=== PATIENT | female | born 1980 | race Caucasian/White ===

== ENCOUNTER 2016-09-14 04:42 | Inpatient (IN) | payer BC ==
[2016-09-14 06:48] LABS: Hematocrit 39 % (35-47); Hemoglobin 13.4 g/dl (12.0-16.0); Mean Corpuscular HGB Conc 34 g/dl (31-36); Mean Corpuscular Hemoglobin 33 pg (27-31); Mean Corpuscular Volume 95 fL (80-97); Red Cell Distribution Width 14 % (10.5-15); White Blood Count 17.9 10^3/ul (3.5-10.8)
[2016-09-14 06:51] LABS: Comments Flag Yes
[2016-09-14 06:52] LABS: Add Diff/Slide Review? Slide Review Added
[2016-09-14 07:24] LABS: Mean Platelet Volume 12 um3 (7.4-10.4)
[2016-09-14] MEDS ORDERED: Oxytocin in LR* 20 UNITS/1,000 ML BAG IVPB ONE (07:32)
[2016-09-14] MEDS ORDERED: Acetaminophen TAB* 325 MG PO PRN (07:52)
[2016-09-14] MEDS ORDERED: oxyCODONE/Acetamin 5/325 MG* TAB PO PRN (07:52)
[2016-09-14] MEDS ORDERED: Misoprostol TAB* 200 MCG PR ONE (07:52)
[2016-09-14] MEDS ORDERED: Witch Hazel PAD* JAR TOPICAL PRN (07:52)
[2016-09-14] MEDS ORDERED: Dibucaine 1% 28.35 GM TUBE PR PRN (07:52)
[2016-09-14] MEDS ORDERED: Oxytocin in LR* 20 UNITS/1,000 ML BAG IVPB SCH (08:00)
[2016-09-14] MEDS: Docusate CAP* 100 MG PO SCH ×3 (08:18→20:29)
[2016-09-14] MEDS: Ibuprofen TAB* 600 MG PO PRN ×3 (08:18→20:29)
[2016-09-14] MEDS ORDERED: Simethicone CHEW TAB* 80 MG PO SCH (08:30)
[2016-09-14] MEDS: Propranolol LA CAP* 80 MG PO SCH (09:15)
[2016-09-15] MEDS: Ibuprofen TAB* 600 MG PO PRN ×3 (04:21→21:24)
[2016-09-15 06:56] LABS: Hematocrit 32 % (35-47); Hemoglobin 10.9 g/dl (12.0-16.0); Mean Corpuscular HGB Conc 34 g/dl (31-36); Mean Corpuscular Hemoglobin 33 pg (27-31); Mean Corpuscular Volume 96 fL (80-97); Mean Platelet Volume 12 um3 (7.4-10.4); Red Blood Count 3.35 10^6/ul (4.0-5.4); Red Cell Distribution Width 14 % (10.5-15); White Blood Count 13.3 10^3/ul (3.5-10.8)
[2016-09-15] MEDS: Docusate CAP* 100 MG PO SCH ×3 (07:37→21:24)
[2016-09-15] MEDS: Propranolol LA CAP* 80 MG PO SCH (07:37)
[2016-09-15] MEDS ORDERED: Measles, Mumps,Rubella VACC* 0.5 ML/VIAL SUBCUT ONE (09:00)
[2016-09-15] MEDS: Ferrous Gluconate TAB* 324 MG TAB PO SCH ×2 (11:04→21:40)
[2016-09-16] MEDS: Ibuprofen TAB* 600 MG PO PRN (06:39)
[2016-09-16 08:27] VITALS: BP 123/72
[2016-09-16] MEDS: Docusate CAP* 100 MG PO SCH (09:00)
[2016-09-16] MEDS: Propranolol LA CAP* 80 MG PO SCH (09:00)
== END 2016-09-16 10:39 | disposition home or self-care (01) | DRG 560 ==
LOC: MCHOBOUT 04:42 → MCHOB 05:12
PROVIDERS: ADMIT Midwife; ATTEND Nurse Practitioner
PROC: 10E0XZZ Delivery of Products of Conception, External Approach (ICD-10-PCS; principal; 2016-09-14)
PROC: 0HQ9XZZ Repair Perineum Skin, External Approach (ICD-10-PCS; 2016-09-14)
PROC: 4A1HXCZ Monitoring of Products of Conception, Cardiac Rate, External Approach (ICD-10-PCS; 2016-09-14)
DX: O48.0 Post-term pregnancy (principal); G43.909 Migraine, unspecified, not intractable, without status migrainosus; O75.89 Other specified complications of labor and delivery; O69.81X0 Labor and delivery complicated by cord around neck, without compression, not applicable or unspecified; O70.0 First degree perineal laceration during delivery; Z3A.40 40 weeks gestation of pregnancy; Z37.0 Single live birth; Z88.1 Allergy status to other antibiotic agents
CPT/HCPCS: 36415; 85025; 86850; 86900; 86901; 90707; A9270-GY

== ENCOUNTER 2018-01-15 05:54 | Emergency (ER) | payer BC ==
[2018-01-15] MEDS ORDERED: Ketorolac INJ* 30 MG/ML 1 ML VIAL IV PUSH ONE (07:25)
[2018-01-15] MEDS ORDERED: NS 0.9% 1000 ML* 1,000 ML IV ONE (07:25)
--- NOTE | 2018-01-15 07:28 | ED ---
Abdominal Pain/Female - HPI Summary HPI Summary: Patient is a 37-year-old who presents emergency department for pain under bilateral ribs which started acutely early this morning. Patient states she's had pain similar to this in the past but it typically resolves. She describes pain as sharp and cramping in nature. Pain occasionally feels better when sitting up and leaning forward. She denies chest pain, shortness of breath, recent illness, fever. Admits to nausea without vomiting. Denies diarrhea or constipation, urinary symptoms. She denies Past medical history. Symptoms are moderate in severity. No current modifying factors. - History of Current Complaint Chief Complaint: EDChestWallPain Stated Complaint: ABD/BACK PAIN Time Seen by Provider: 01/15/18 07:08 Hx Obtained From: Patient Hx Last Menstrual Period: LAST WEEK FEBRUARY Pain Intensity: 5 Allergies/Adverse Reactions: Allergies Allergy/AdvReac Type Severity Reaction Status Date / Time erythromycin base Allergy Nausea And Verified 01/20/18 10:55 Vomiting Home Medications: Home Medications Ibuprofen TAB* [Motrin TAB* 600 MG] 400 mg PO Q6H PRN 01/15/18 [History Confirmed 01/15/18] Magnesium Oxide [Magnesium] 400 mg PO QAM 01/15/18 [History Confirmed 01/15/18] Propranolol HCl [Propranolol HCl ER] 80 mg PO QAM 01/15/18 [History Confirmed ] PMH/Surg Hx/FS Hx/Imm Hx Previously Healthy: Yes Endocrine/Hematology History: Denies: Hx Diabetes, Hx Thyroid Disease Cardiovascular History: Denies: Hx Hypertension Respiratory History: Denies: Hx Asthma History: Denies: Hx Kidney Infection, Other Problems/Disorders Psychiatric History: Reports: Other Psychiatric Issues/Disorders - anxiety uses acupunture Denies: Hx Anxiety, Hx Depression Infectious Disease History: No Infectious Disease History: Denies: Traveled Outside the [place] in Last 30 Days - Family History Known Family History: Positive: Other Family History: Noncontributory - Social History Occupation: Employed Full-time Lives: With Family Alcohol Use: None Substance Use Type: Reports: None Smoking Status (MU): Never Smoked Tobacco Have You Smoked in the Last Year: No Review of Systems Constitutional: Negative Negative: Fever, Chills Eyes: Negative ENT: Negative Cardiovascular: Negative Negative: Chest Pain Respiratory: Negative Negative: Shortness Of Breath, Cough Positive: Abdominal Pain, Nausea. Negative: Vomiting, Diarrhea Genitourinary: Negative Negative: burning, dysuria Musculoskeletal: Negative Neurological: Negative All Other Systems Reviewed And Are Negative: Yes Physical Exam Triage Information Reviewed: Yes Vital Signs On Initial Exam: Initial Vitals Temp Pulse Resp BP Pulse Ox 98.1 F 72 20 136/98 99 01/15/18 06:08 01/15/18 06:08 01/15/18 06:08 01/15/18 06:08 01/15/18 06:08 Vital Signs Reviewed: Yes Appearance: Positive: Well-Appearing - Pt. sitting up in bed in NAD. present. Skin: Positive: Warm, Dry Head/Face: Positive: Normal Head/Face Inspection Eyes: Positive: Normal, EOMI Neck: Positive: Supple, Nontender Respiratory/Lung Sounds: Positive: Clear to Auscultation, Breath Sounds Present Cardiovascular: Positive: Normal, RRR Abdomen Description: Positive: Other: - Abd. is soft with pain to the RUQ and LUQ. Slightly positive linn sign. No rebound tenderness or guarding.. Negative: CVA Tenderness (R), CVA Tenderness (L) Musculoskeletal: Positive: Other - No midline vertebral tenderness Neurological: Positive: Normal, CN Intact II-III Psychiatric: Positive: Affect/Mood Appropriate Diagnostics - Vital Signs Vital Signs Temp Pulse Resp BP Pulse Ox 01/15/18 06:08 98.1 F 72 20 136/98 99 - Laboratory Result Diagrams: 01/15/18 07:38 01/15/18 07:38 Lab Statement: Any lab studies that have been ordered have been reviewed, and results considered in the medical decision making process. Abdominal Pain Fem Course/Dx - Course Course Of Treatment: Pt. presenting for upper, intermittent abd. pain. She is afebrile with stable vital signs. Will obtain labs and GB u/s. Pt. was started on IV fluids and given toradol for pain. Blood work is unremarkable. U/S shows cholelithiasis without evidence of cholecystitis, reading per radiology. On reexamination patient's pain has improved and she is resting comfortably. Results were discussed. Patient is currently pain free and we'll discharge her home to follow up with surgery for outpt., elective cholecystectomy. Advised patient to avoid foods high in fat, degrees, sugar. Advised patient to return to the ER if pain increases, persists, fever, uncontrollable vomiting or if concerned. Patient understands and agrees with plan. She was given information for the surgical clinic and is to call their office tomorrow to schedule an appointment. - Diagnoses Differential Diagnosis: Positive: Appendicitis, Constipation, Gall Bladder Disease, Hepatitis, Pancreatitis, Peptic Ulcer Disease, Pneumonia, , Renal Colic, Urinary Tract Infection Provider Diagnoses: Cholelithiasis Discharge - Sign-Out/Discharge Documenting (check all that apply): Patient Departure - Discharge Plan Condition: Good Disposition: HOME Patient Education Materials: Gallstones (ED) Referrals: Nataly Lugo MD [Medical Doctor] - Penny Cope MD [Primary Care Provider] - Additional Instructions: Schedule a follow up appointment with PCP and surgery Avoid foods high in fat, sugar, grease Can take tylenol or motrin for pain as directed Return to ER for increased, prolonged pain, fever, vomiting or if concerned - Billing Disposition and Condition Condition: GOOD Disposition: Home
[2018-01-15 07:48] LABS: ABS Basophils 0 10^3/ul (0-0.2); ABS Eosinophils 0.1 10^3/ul (0-0.6); ABS Lymphocytes 1.3 10^3/ul (1.0-4.8); ABS Monocytes 0.6 10^3/ul (0-0.8); ABS Neutrophils 6.8 10^3/ul (1.5-7.7); ABS Nucleated RBC 0 10^3/ul; Hematocrit 40 % (35-47); Lymphocyte % 15.3 % (25-47); Mean Corpuscular HGB Conc 35 g/dl (31-36); Mean Corpuscular Hemoglobin 33 pg (27-31); Mean Corpuscular Volume 93 fL (80-97); Mean Platelet Volume 10.8 um3 (7.4-10.4); Nucleated Red Blood Cells % 0.2; Platelet Count 170 10^3/ul (150-450); Red Blood Count 4.32 10^6/ul (4.00-5.40); Red Cell Distribution Width 13 % (10.5-15); White Blood Count 8.8 10^3/ul (3.5-10.8)
[2018-01-15 08:07] LABS: EGFR Non-African American 76.7 (>60)
--- NOTE | 2018-01-15 08:20 | RAD ---
HISTORY: RUQ pain COMPARISONS: None TECHNIQUE: Multiple transverse and longitudinal ultrasound images were obtained of the right upper quadrant of the abdomen using grayscale and color Doppler imaging. FINDINGS: LIVER: The liver is diffusely echogenic and coarse in echotexture, with decreased acoustic transmission. The liver measures 18.8 cm in long axis.. There is normal hepatopedal flow of the portal vein on Doppler imaging. BILIARY TREE: There is no intrahepatic or extrahepatic biliary dilatation. The common duct measures 0.3 cm. GALLBLADDER: The gallbladder is distended. Multiple shadowing echogenic foci consistent with gallstones are noted. There is no gallbladder wall thickening, pericholecystic fluid, or sonographic Esquivel sign. PANCREAS: The head of the pancreas is unremarkable. The tail of the pancreas is not well visualized secondary to overlying bowel gas. RIGHT KIDNEY: The right kidney is normal in shape, size, contour, and echogenicity. There is no hydronephrosis or nephrolithiasis. The right kidney measures 10.8 x 5.1 x 4.9 cm. AORTA AND IVC: The aorta and IVC are unremarkable. FLUID: There are no pleural effusions. There is no free fluid within the hepatorenal recess. OTHER FINDINGS: None. IMPRESSION: 1. CHOLELITHIASIS WITHOUT SONOGRAPHIC FEATURES OF ACUTE CHOLECYSTITIS. 2. FATTY INFILTRATION OF THE LIVER.
[2018-01-15 10:19] VITALS: BP 111/78
== END 2018-01-15 10:20 | disposition home or self-care (01) ==
LOC: ED 05:54
DX: K80.20 Calculus of gallbladder without cholecystitis without obstruction (principal); K76.0 Fatty (change of) liver, not elsewhere classified; Z88.1 Allergy status to other antibiotic agents
CPT/HCPCS: 36415; 76705; 80053; 83690; 84702; 85025; 96361; 96374; 99283; J1885

== ENCOUNTER 2018-01-20 10:40 | Day surgery (SDC) | payer BC ==
--- NOTE | 2018-01-18 15:01 | HP ---
CC: Dr. Lugo; Dr. Cope* DATE OF ADMISSION: 01/20/2018. This patient is scheduled for Same Day Surgery admission by Dr. Lugo. DATE OF PREOPERATIVE HISTORY AND PHYSICAL EXAMINATION: 01/18/2018. ATTENDING SURGEON: Dr. Nataly Lugo* (dictated by Jackie Ambrose NP). CHIEF COMPLAINT: Gallstones. HISTORY OF PRESENT ILLNESS: The patient is a 37-year-old female, recently evaluated by Dr. Lugo. The patient was in the [facility] Emergency Department on 01/15/2018 complaining of back pain wrapping around to her abdomen associated with nausea, bloating, and diarrhea. She denied any fever or chills. She denied any change in the color of urine or stool. Gallbladder ultrasound revealed cholelithiasis, no acute changes to suggest cholecystitis, and there was fatty infiltration of the liver. White blood cell count and liver function test were within normal limits. She was referred for surgical consultation. Dr. Lugo has examined the patient and has recommended laparoscopic cholecystectomy, and has described the nature of the surgical procedure, the relevant risks and benefits, and today I reviewed the expected postoperative care and recovery. The patient has had a chance to ask questions and stated that she understands the information and is satisfied with the answers given to her questions. She will sign surgical consent on the day of surgery. PAST MEDICAL HISTORY: Migraine headaches. PAST SURGICAL HISTORY: Cervical LEEP procedure. MEDICATIONS: 1. Propranolol ER 80 mg one tablet p.o. daily. 2. Ondansetron 4 mg one to two p.o. every 8 hours prn nausea. 3. Relpax 40 mg one tablet as needed for headache, may repeat after 2 hours, maximum 2 tablets a day, maximum 2 days a week. 4. Advil 200 mg one to two tablets every 6 to 8 hours prn migraine. 5. Magnesium 400 mg p.o. b.i.d. ALLERGIES: ERYTHROMYCIN CAUSED NAUSEA AND VOMITING. FAMILY HISTORY: Mother had a cholecystectomy. No known anesthesia complications, bleeding tendencies, or clotting disorders. SOCIAL HISTORY: She is and has two young children. 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 She is a nonsmoker. She denies the use of alcohol or other substances. REVIEW OF SYSTEMS: Constitutional: No fevers, chills, excessive fatigue or weight loss. Endocrine: No diabetes or thyroid disease. Hematologic: No easy bruising or bleeding. No history of blood transfusions. Respiratory: No dyspnea on exertion. No chronic cough. Cardiovascular: No anginal chest pain or palpitations. Gastrointestinal: As described in history of present illness ; today she is pain free and denies any nausea, vomiting, diarrhea, or constipation. Genitourinary: No dysuria, no dark urine. Musculoskeletal: No back or joint pain. Neurologic: No headache or blurred vision. No areas of focal weakness. General: No previous anesthesia complications. No history of deep vein thrombosis or pulmonary embolism. No blood transfusions. PHYSICAL EXAMINATION GENERAL: The patient is a 37-year-old female, well-developed, well-nourished, in no acute distress. VITAL SIGNS: Height 64 inches, weight 170 pounds, body mass index 29.2. Blood pressure 92/60, pulse 70 and regular, respiratory rate 16, temperature 98.3 tympanic. SKIN: Warm, dry, intact. HEENT: Anicteric sclerae. NECK: Supple, no cervical lymphadenopathy. LUNGS: Breath sounds bilaterally clear and equal. HEART: Regular rate and rhythm. No murmurs or rubs appreciated. ABDOMEN: Active bowel sounds, soft, nondistended, nontender throughout. Negative Esquivel sign. No obvious masses, organomegaly, or evidence of umbilical hernia. EXTREMITIES: Warm without edema or skin ulceration. PELVIC: Exam deferred. RECTAL: Exam deferred. NEUROLOGIC: Alert and oriented times three, steady gait. IMPRESSION: Symptomatic cholelithiasis. PLAN: Same Day Surgery admission to Dr. Lugo's service on 01/20/2018 for laparoscopic cholecystectomy. NEELIMA AMBROSE, PRIMARY SCHOOL TEACHER LIBRARIAN [id number]/[facility] #: [id number] GINO
[~2018-01-20 10:40] MED LIST: Buffered Lidocaine 0.9% SYRIN* 5 ML/SYR SYRINGE INTRADERM ONE; Dexamethasone IV* 4 MG/ML 1 ML (4 MG) IV SLOW PU ONE; Famotidine IV* 10 MG/ML 2 ML (20 mg) IV ONE
[2018-01-20] MEDS ORDERED: Famotidine IV* 10 MG/ML 2 ML (20 mg) ONE (10:45)
[2018-01-20] MEDS ORDERED: Dexamethasone IV* 4 MG/ML 1 ML (4 MG) ONE (10:45)
[2018-01-20] MEDS ORDERED: ceFAZolin 2 GM PREMIX (*) 2 GM/50 ML BAG IVPB ONE (10:46)
[2018-01-20] MEDS ORDERED: Midazolam* 1 MG/ML 5 ML VIAL (5 MG) ONE (11:07)
[2018-01-20] MEDS ORDERED: fentaNYL* 50 MCG/ML 2 ML VIAL (100 MCG VIAL) ONE ×4 (11:07→13:14)
[2018-01-20] MEDS ORDERED: Ketorolac INJ* 30 MG/ML 1 ML VIAL IV PRN (11:17)
[2018-01-20] MEDS ORDERED: DiMENhydriNATE IV* 50 MG/ML VIAL IV PUSH PRN (11:17)
[2018-01-20] MEDS ORDERED: Naloxone* 0.4 MG/ML 1 ML VIAL IV PRN (11:17)
[2018-01-20] MEDS ORDERED: HYDROcodone/ACETAMIN 5-325 MG* 1 TAB PO PRN (11:17)
[2018-01-20] MEDS ORDERED: Propofol* 10 MG/ML 20 ML BTL IV PUSH ONE (11:27)
[2018-01-20] MEDS ORDERED: Mivacurium Chloride* 20 MG/10 ML VIAL IV ONE (11:27)
[2018-01-20] MEDS ORDERED: Lidocaine 2% PF * 5 ML VIAL ONE (11:27)
[2018-01-20] MEDS ORDERED: Ondansetron INJ* 2 MG/ML VIAL ONE (12:19)
--- NOTE | 2018-01-20 13:10 | BRIEFOPN ---
Brief Operative Note - Surgery Procedures: Brief Operative Note Preoperative Dx: Calculous cholecystitis. Postoperative Dx: Calculous cholecystitis. Procedure: Laparoscopic cholecystectomy. Anesthesia: GET. Surgeon: MD Parish. Assist: ED Thomas. EBL: Less than 50. Fluids: 1400 LR Specimen: Gallbladder. Findings: Dictated.
[2018-01-20] MEDS ORDERED: Ketorolac INJ* 30 MG/ML 1 ML VIAL ONE (13:14)
[2018-01-20] MEDS: fentaNYL* 50 MCG/ML 2 ML VIAL (100 MCG VIAL) IV PRN ×2 (13:19→13:32)
[2018-01-20] MEDS ORDERED: oxyCODONE TAB* 5 MG TAB ONE ×2 (13:43→14:34)
[2018-01-20] MEDS: oxyCODONE TAB* 5 MG TAB PO PRN ×2 (13:44→14:34)
[2018-01-20 16:03] VITALS: BP 118/73
--- NOTE | 2018-01-21 00:53 | OP ---
CC: Dr. Penny Cope * DATE OF OPERATION: 01/20/18 - [facility] DATE OF : 82 SURGEON: Nataly Lugo MD GUSSET STITCHER: Jackie Almeida NP and ED Lee, student PRE-OP DIAGNOSIS: Chronic cholecystitis. POST-OP DIAGNOSIS: Chronic cholecystitis. OPERATIVE PROCEDURE: Laparoscopic cholecystectomy. INDICATIONS: Ms. Minaya is a 37-year-old woman who has been having abdominal pain consistent with chronic cholecystitis, so plans were made for operative intervention. DESCRIPTION OF PROCEDURE: She was brought to the operating room, placed on the OR table in a supine position and given general anesthesia. The abdomen was then prepped and draped in the usual sterile fashion. After infiltrating with local anesthetic, an incision was made in the infraumbilical area and subcutaneous tissue was divided bluntly. The fascia was grasped and incised and a 0 Vicryl stitch was placed on either side of the fascial incision. A trocar was inserted into the abdomen and the abdomen was insufflated and under direct visualization a subxiphoid and 2 right subcostal ports were placed after infiltrating with the local anesthetic. The gallbladder was visualized and elevated over the liver and was noted to have some adhesions of omentum to it. These were taken down with a combination of blunt and electrocautery dissection to expose the infundibulum with gallbladder. This allowed dissection of the cystic duct and was noted to have a stone in it, so the cystic duct was cleared. Below the stone it was clipped and divided and then the cystic artery was identified, cleared, clipped and divided and then the gallbladder was taken down from the liver bed. This was done with electrocautery. A small amount of mild leakage was noted and the gallbladder once it was removed from the liver bed, was placed in an EndoCatch bag and withdrawn from the abdomen through the subxiphoid port site. Small amount of bleeding on the liver bed was controlled with electrocautery and Surgicel and then the rest of the abdomen was briefly inspected and there noted no obvious abnormalities. The right upper quadrant was copiously irrigated with saline and the irrigation fluid was evacuated. All ports were then withdrawn under direct visualization. The previously placed 0 Vicryl was used to close the fascia. The infraumbilical port site required 2 additional [id number] stitches with 0 Vicryl to complete the closure, then 4-0 Monocryl was used to close the skin of all incisions. Steri- Strips were applied. All sponge and instrument counts were correct. The patient tolerated the procedure well and was transferred to Recovery in a stable condition. [id number]/[facility] #: [id number] MTDD
== END 2018-01-20 16:04 | disposition home or self-care (01) ==
LOC: OR 10:40
PROVIDERS: ATTEND Surgery
DX: K80.10 Calculus of gallbladder with chronic cholecystitis without obstruction (principal); Z68.29 Body mass index [BMI] 29.0-29.9, adult
CPT/HCPCS: 81025; 88304; A9270-GY; J0690; J1100; J1885; J2250; J2405; J2704; J3010

== ENCOUNTER 2018-05-19 08:16 | Day surgery (SDC) | payer BC ==
[~2018-05-19 08:16] MED LIST changes: +Lactated Ringers 1000 ML Bag* 1,000 ML IV SCH
[2018-05-19] MEDS ORDERED: Dexamethasone IV* 4 MG/ML 1 ML (4 MG) ONE (08:45)
[2018-05-19] MEDS ORDERED: Famotidine IV* 10 MG/ML 2 ML (20 mg) ONE (08:45)
[2018-05-19 09:19] LABS: Hematocrit 43 % (35-47); Hemoglobin 14.8 g/dl (12.0-16.0); Mean Corpuscular HGB Conc 34 g/dl (31-36); Mean Corpuscular Hemoglobin 33 pg (27-31); Mean Corpuscular Volume 95 fL (80-97); Mean Platelet Volume 10.9 fL (7.4-10.4); Platelet Count 188 10^3/ul (150-450); Red Blood Count 4.56 10^6/ul (4.00-5.40); Red Cell Distribution Width 13 % (10.5-15); White Blood Count 7.7 10^3/ul (3.5-10.8)
[2018-05-19] MEDS ORDERED: Lidocaine 1% MPF wEPI 200,000* 30 ML SDV ONE (09:48)
[2018-05-19] MEDS ORDERED: DiMENhydriNATE IV* 50 MG/ML VIAL IV PUSH PRN (09:51)
[2018-05-19] MEDS ORDERED: HYDROcodone/ACETAMIN 5-325 MG* 1 TAB PO PRN (09:51)
[2018-05-19] MEDS ORDERED: fentaNYL* 50 MCG/ML 2 ML VIAL (100 MCG VIAL) IV PRN (09:51)
[2018-05-19] MEDS ORDERED: Naloxone* 0.4 MG/ML 1 ML VIAL IV PRN (09:51)
[2018-05-19] MEDS ORDERED: oxyCODONE/Acetamin 5/325 MG* TAB PO PRN (09:51)
[2018-05-19] MEDS ORDERED: fentaNYL* 50 MCG/ML 2 ML VIAL (100 MCG VIAL) ONE (09:53)
[2018-05-19] MEDS ORDERED: Midazolam* 1 MG/ML 5 ML VIAL (5 MG) ONE (09:53)
[2018-05-19] MEDS ORDERED: Silver Nitrate/Potassium Nitr* 1 EA STICK ONE (09:55)
[2018-05-19] MEDS ORDERED: Lidocaine 2% PF * 5 ML VIAL ONE (10:08)
[2018-05-19] MEDS ORDERED: Propofol* 10 MG/ML 20 ML BTL ONE (10:08)
[2018-05-19] MEDS ORDERED: Ketorolac INJ* 30 MG/ML 1 ML VIAL ONE (10:11)
[2018-05-19] MEDS ORDERED: Ferric Subsulfate* 8 ML BTL ONE (10:39)
[2018-05-19] MEDS ORDERED: Ondansetron INJ* 2 MG/ML VIAL ONE (10:39)
[2018-05-19 11:48] VITALS: BP 104/64
--- NOTE | 2018-05-19 14:20 | OP ---
DATE OF OPERATION: 05/19/18 [facility] DATE OF : 82 SURGEON: Kameron Black MD. ANESTHESIOLOGIST: Dr. Madera ANESTHESIA: MAC and local. PRE-OP DIAGNOSIS: Large cervical polyp. POST-OP DIAGNOSIS: Large cervical polyp. OPERATIVE PROCEDURE: Cervical polypectomy. ESTIMATED BLOOD LOSS: Minimal. URINE OUTPUT: 100 cc. IV FLUIDS: 800 cc lactated Ringer's. MATERIALS TO LAB: Cervical polyp. INDICATIONS: This patient was a 37-year-old 4, para 2, who recently was noted to have a large cervical polyp at her annual exam. The polyp was measuring about 2 cm in diameter and had a very wide base, so the decision was made to remove it in the operating room, rather than the clinic. The patient had been asymptomatic without any bleeding or pain. She was extensively counseled for cervical polypectomy and consent was signed. FINDINGS: Approximately 2 cm large endocervical polyp with a base of a full 2 to 2.5 cm wide. This was removed without difficulty using monopolar cautery. COMPLICATIONS: None. DESCRIPTION OF PROCEDURE: The risks, benefits and alternatives were described to the patient and informed consent was obtained. The patient was taken to the operating room with IV running where heavy sedation was induced and found to be adequate. The patient was prepped and draped in the normal sterile fashion in the high lithotomy position and Joseph stirrups. A time-out was performed. The bladder was emptied. A coated bivalve speculum was placed in the vagina and the cervix and polyp were well visualized. The cervix and the base of the polyp were injected with 1% lidocaine with epinephrine. A monopolar Bovie was then used to coagulate and amputate the cervix from its wide base. A small amount of bleeding was stopped using additional cautery. The polyp was handed off as a specimen. There was no bleeding present at that time. Monsel solution was then applied to the entire cauterized base and the procedure was discontinued. The speculum was removed and the patient was returned to the supine position. The patient tolerated the procedure well. Sponge, lap and needle counts were correct x2. [id number]/[facility] #: [id number] MTDD
== END 2018-05-19 12:15 | disposition home or self-care (01) ==
LOC: OR 08:16
PROVIDERS: ATTEND Obstetrics & Gynecology
DX: N84.1 Polyp of cervix uteri (principal); F41.8 Other specified anxiety disorders; G43.909 Migraine, unspecified, not intractable, without status migrainosus
CPT/HCPCS: 36415; 81025; 85027; 88305; A9270-GY; J1100; J1885; J2001; J2250; J2405; J2704; J3010